=== PATIENT | female | born 1975 | race Caucasian/White ===

== ENCOUNTER 2020-08-28 17:05 | Emergency (ER) | payer OTHER ==
[~2020-08-28] VITALS: Ht 170.2 cm; Wt 45.4 kg
[~2020-08-28 17:05] MED LIST: IBUPROFEN 800800 MG PO; NORCO 5-325 TA1 EACH PO; NUVIGIL PO
[2020-08-28] MEDS ORDERED: MOBIC7.5 MG PO (20:17)
[2020-08-28] MEDS ORDERED: KEFLEX500 M1 PO (20:17)
[2020-08-28 20:31] VITALS: BP 121/86
== END 2020-08-28 20:32 | disposition home or self-care (01) ==
LOC: ER 17:05
DX: S02.2XXA Fracture of nasal bones, initial encounter for closed fracture (principal); S83.91XA Sprain of unspecified site of right knee, initial encounter; Y04.2XXA Assault by strike against or bumped into by another person, initial encounter; Y93.89 Activity, other specified; Y92.89 Other specified places as the place of occurrence of the external cause; Y99.8 Other external cause status